=== PATIENT | female | born 1995 | race Caucasian/White ===

== ENCOUNTER 2024-03-12 13:20 | Inpatient (IN) | payer MEDICAID ==
[~2024-03-12] VITALS: Ht 152.4 cm; Wt 63.3 kg
[2024-03-12 14:02] LABS: EOSINOPHILS # (AUTO) 0.1 X10'3 (0-0.9); EOSINOPHILS % (AUTO) 1.3 % (0-6); HEMOGLOBIN 14.4 g/dl (12.0-16.0); MONOCYTES # (AUTO) 0.5 X10'3 (0-0.9); RED BLOOD COUNT 4.92 X10'6 (4.20-5.60); WHITE BLOOD COUNT 6.1 X10'3 (4.5-11.0)
[2024-03-12 14:04] LABS: BASOPHILS % (AUTO) 0.7 % (0-1); HEMATOCRIT 42.6 % (35.0-45.0); LYMPHOCYTES % (AUTO) 16.8 % (21-51); MEAN CORPUSCULAR HEMOGLOBIN 29.4 PG (27.0-31.0); MEAN CORPUSCULAR HGB CONC 33.9 g/dL (33.0-36.5); MEAN CORPUSCULAR VOLUME 86.7 FL (78-98); MEAN PLATELET VOLUME 11.4 FL (7.4-10.4); MONOCYTES % (AUTO) 8.2 % (2-12); NEUTROPHILS # (AUTO) 4.4 X10'3 (1.8-7.7); PLATELET COUNT 183 X10'3 (140-440); RED CELL DISTRIBUTION WIDTH 13.8 % (11.5-14.5)
[2024-03-12 14:14] LABS: ANION GAP 9 (8-16); BLOOD UREA NITROGEN 12 MG/DL (7-18); BUN/CREATININE RATIO 14.5 (10.0-20.0); CALCIUM 9.9 MG/DL (8.5-10.1); CHLORIDE 108 MMOL/L (99-107); CREATININE 0.83 MG/DL (0.40-0.90); GLUCOSE 97 MG/DL (70-104); LIPASE 49 U/L (16-77); SODIUM 141 MMOL/L (135-145); TOTAL CARBON DIOXIDE 24.2 MMOL/L (24-32); eCRCL 72 ML/MIN; eGFR 81 ML/MIN
--- NOTE | 2024-03-12 14:19 | NUR ---
Patient assisted to the restroom. was able to collect urine sample.
[2024-03-12 14:37] LABS: BILIRUBIN,URINE NEGATIVE (Neg); CLARITY,URINE CLEAR (Clear); COLOR,URINE YELLOW (Yellow); GLUCOSE, URINE NEGATIVE (Neg); KETONES,URINE NEGATIVE (Neg); LEUKOCYTE ESTERASE ,URINE NEGATIVE (Neg); NITRITES, URINE NEGATIVE (Neg); OCCULT BLOOD,URINE SMALL (Neg); PROTEIN,URINE NEGATIVE (Neg); UROBILINOGEN,URINE 0.2 E.U/dL (0.2-1.0)
[2024-03-12 14:47] LABS: UA COLLECTION TYPE CLN CATCH MIDSTREAM
[2024-03-12 14:51] LABS: BACTERIA,URINE FEW /HPF (Neg); RBC,URINE 0-2 /HPF (0-2); SQUAMOUS EPITHELIAL CELL,UR FEW /LPF (FEW); TRANSITIONAL EPI CELLS,URINE FEW /HPF; WBC,URINE 0-4 /HPF (0-4)
[2024-03-12] MEDS: ondansetron/PF 4mg/2ml inj IV ONE (14:56)
[2024-03-12] MEDS: normal saline 1000ml 1,000 ML IV ONE (14:56)
--- NOTE | 2024-03-12 14:58 | NUR ---
automotive tire technician at bedside.
--- NOTE | 2024-03-12 15:21 | NUR ---
Provider in room giving patient update.
[2024-03-12] MEDS: dicyclomine 10 MG capsule PO ONE (15:44)
--- NOTE | 2024-03-12 15:45 | NUR ---
patient went to restroom.
[2024-03-12] MEDS: famotidine/PF 10 mg/ml inj IV ONE (15:51)
--- NOTE | 2024-03-12 16:40 | NUR ---
provider in room to reasses pain.
[2024-03-12] MEDS: pantoprazole 40 MG vial IV ONE (16:53)
[2024-03-12] MEDS: LIDOcaine 2% Viscous 15ml cup MM ONE (16:54)
[2024-03-12] MEDS: mag hydrox/Alum hydrox/simeth 30ml oral suspension PO ONE (16:54)
[2024-03-12] MEDS ORDERED: SUCR1TAB PO (18:07)
[2024-03-12] MEDS ORDERED: OMEP40CA21 PO (18:07)
[2024-03-12] MEDS ORDERED: ONDA-245 PO (18:08)
[2024-03-12] MEDS ORDERED: DICY20TA17 PO (18:08)
[2024-03-12] MEDS: sucralfate 1 gm tablet PO ONE (18:31)
[2024-03-12] MEDS: metoclopramide 5 mg/ml inj IV ONE (19:06)
[2024-03-12] MEDS: HYDROmorphone 1 mg/ml syringe IV ONE (19:07)
[2024-03-12] MEDS ORDERED: potassium Cl 40MEQ/1/2NS 520ml 520 ML IV PRN (19:35)
[2024-03-12] MEDS ORDERED: mag hydrox/Alum hydrox/simeth 30ml oral suspension PO PRN (19:35)
[2024-03-12] MEDS ORDERED: HYDROcodone/acetaminophen 10/325mg tab PO PRN (19:35)
[2024-03-12] MEDS ORDERED: acetaminophen 325mg tablet PO PRN (19:35)
[2024-03-12] MEDS ORDERED: morphine 2 MG/ML inj. syringe IV PRN ×2 (19:35)
[2024-03-12] MEDS ORDERED: ondansetron/PF 4mg/2ml inj IV PRN (19:35)
[2024-03-12] MEDS ORDERED: magnesium sulf-water 4G/100mL 100 ML IV PRN (19:35)
[2024-03-12] MEDS ORDERED: HYDROcodone/acetaminophen 5mg/325mg tablet PO PRN (19:35)
[2024-03-12] MEDS ORDERED: magnesium Cl slow-release 64mg tablet PO PRN (19:35)
[2024-03-12] MEDS ORDERED: magnesium hydroxide 30ml (MOM) UD suspension PO PRN (19:35)
[2024-03-12] MEDS ORDERED: magnesium sulf-water 2g/50mL 50 ML IV PRN (19:35)
[2024-03-12] MEDS ORDERED: potassium Cl 20 mEq SR tablet PO PRN ×2 (19:35)
[2024-03-12] MEDS: docusate sod 100mg capsule PO SCH (19:59)
[2024-03-12] MEDS: K and/or MAG REPLACEMENT MC SCH (20:00)
[2024-03-12] MEDS ORDERED: famotidine/PF IV inj 40 MG in normal saline 100ml IV soln 100 ML IV SCH (20:00)
[2024-03-12 20:09] LABS: ALANINE AMINOTRANSFERASE 26 U/L (12-78); ALBUMIN 3.5 G/DL (3.4-5.0); ALBUMIN/GLOBULIN RATIO 1.1 (1.1-1.5); ALKALINE PHOSPHATASE 57 IU/L (46-116); ASPARTATE AMINO TRANSFERASE 20 U/L (10-37); BILIRUBIN,DIRECT 0.1 MG/DL (0-0.3); BILIRUBIN,TOTAL 0.4 MG/DL (0.1-1.0); TOTAL PROTEIN 6.6 G/DL (6.4-8.2)
[2024-03-12] MEDS ORDERED: dextrose 5%-1/2 normal saline 1,000 ML IV SCH (21:40)
[2024-03-12] MEDS ORDERED: NO HOME MEDS (23:52)
[2024-03-13] MEDS: metoclopramide 5 mg/ml inj IV PRN (00:51)
--- NOTE | 2024-03-13 01:04 | NUR ---
Pt refused zofran requesting Reglan because it was more effective in relieving her nausea earlier.
[2024-03-13] MEDS: dextrose 5%-normal saline 1,000 ML IV SCH (02:08)
[2024-03-13 03:00] VITALS: BP 132/80; PULSE 76; RESP 19; TEMP 98; O2SAT 97
[2024-03-13 04:19] VITALS: RESP 18; O2SAT 97
--- NOTE | 2024-03-13 06:19 | NUR ---
Problems reprioritized. Patient report given, questions answered & plan of care reviewed with Dorothy. Addendum: 03/13/24 at 0622 by Zenaida Koenig RN Amended: Links added.
[2024-03-13 06:26] VITALS: BP 106/68; PULSE 84; RESP 18; TEMP 97; O2SAT 99
--- NOTE | 2024-03-13 06:30 | NUR ---
Patient in room [facility] 4015. I have received report from Zenaida LAUGHLIN and had the opportunity to ask questions and assume patient care.
[2024-03-13] MEDS: sucralfate 1 gm tablet PO SCH (07:24)
[2024-03-13] MEDS: pantoprazole 40 MG vial IV SCH (07:25)
[2024-03-13 07:31] VITALS: RESP 16
[2024-03-13 07:43] LABS: BASOPHILS % (AUTO) 0.9 % (0-1); EOSINOPHILS # (AUTO) 0.1 X10'3 (0-0.9); EOSINOPHILS % (AUTO) 1.7 % (0-6); HEMATOCRIT 38.1 % (35.0-45.0); LYMPHOCYTES # (AUTO) 1.3 X10'3 (1.1-4.8); LYMPHOCYTES % (AUTO) 25.2 % (21-51); MEAN CORPUSCULAR HEMOGLOBIN 29.5 PG (27.0-31.0); MEAN CORPUSCULAR VOLUME 86.8 FL (78-98); MEAN PLATELET VOLUME 11.4 FL (7.4-10.4); MONOCYTES # (AUTO) 0.5 X10'3 (0-0.9); MONOCYTES % (AUTO) 10.2 % (2-12); NEUTROPHILS # (AUTO) 3.3 X10'3 (1.8-7.7); PLATELET COUNT 149 X10'3 (140-440); RED CELL DISTRIBUTION WIDTH 13.7 % (11.5-14.5); WHITE BLOOD COUNT 5.3 X10'3 (4.5-11.0)
[2024-03-13 07:44] LABS: INR 1.1 INR
[2024-03-13 08:01] LABS: ALBUMIN 3.3 G/DL (3.4-5.0); ANION GAP 9 (8-16); BLOOD UREA NITROGEN 9 MG/DL (7-18); BUN/CREATININE RATIO 13.4 (10.0-20.0); CALCIUM 8.5 MG/DL (8.5-10.1); CHLORIDE 112 MMOL/L (99-107); CHOLESTEROL 163 MG/DL (0-200); CREATININE 0.67 MG/DL (0.40-0.90); GLUCOSE 87 MG/DL (70-104); HDL CHOLESTEROL 55 MG/DL (35-60); LDL CHOLESTEROL 95 MG/DL (50-100); POTASSIUM 3.4 MMOL/L (3.5-5.1); SODIUM 144 MMOL/L (135-145); TOTAL CARBON DIOXIDE 23.1 MMOL/L (24-32); TRIGLYCERIDES 48 MG/DL (20-135); eCRCL 89 ML/MIN; eGFR > 90 ML/MIN
[2024-03-13] MEDS: acetaminophen 325mg tablet PO PRN (10:17)
[2024-03-13] MEDS ORDERED: PANT-47 PO (13:02)
[2024-03-13] MEDS ORDERED: SUCR1TAB PO (13:14)
--- NOTE | 2024-03-13 13:55 | NUR ---
Patient discharged with and kids. Patient dressed self, A&Ox4, no distress noted. Patient will followup with personal MD in her home town.
[2024-03-13] MEDS ORDERED: DICY20TA17 PO (14:34)
== END 2024-03-13 15:23 | disposition home or self-care (01) | DRG 241 ==
LOC: ER 13:20 → UNDOADMIN 19:34 → ED HOLD 19:34 → ORTHO 4S 03-13 02:33 → UNDODISIN 03-13 15:23
PROVIDERS: ADMIT Internal Medicine Critical Care Medicine; ATTEND Registered Nurse Psychiatric/Mental Health
DX: K27.9 Peptic ulcer, site unspecified, unspecified as acute or chronic, without hemorrhage or perforation (principal); K21.9 Gastro-esophageal reflux disease without esophagitis; Z79.899 Other long term (current) drug therapy
CPT/HCPCS: 36415; 74176; 76700; 80048; 80061; 80076; 81001; 83605; 83690; 83735; 84145; 84484; 85025; 85610; 87081; 93005; 96361; 96374; 96375; 99285; G0378; J1170; J2405; J2470; J2765; J3490; J7030; J7042